=== PATIENT | male | born 1990 | race African-American/Black ===

== ENCOUNTER 2022-11-22 23:26 | Emergency (ER) | payer MEDICAID ==
[~2022-11-22] VITALS: Ht 188 cm; Wt 104.3 kg
[2022-11-22] MEDS ORDERED: KETO10TA2 PO (23:38)
[2022-11-22] MEDS ORDERED: KETOROLAC TROMETHAMINE INJ 60 MG/2 ML VIAL IM ONE (23:50)
[2022-11-22 23:57] VITALS: BP 135/82
[2022-11-23] MEDS ORDERED: KETOROLAC TROMETHAMINE INJ 60 MG/2 ML VIAL IM ONE
--- NOTE | 2022-11-23 03:10 | NUR ---
Patient discharged to home in stable condition. Written and verbal after care instructions given. Patient verbalizes understanding of instruction. Pt ambulatory with a steady gait
== END 2022-11-23 03:15 | disposition home or self-care (01) ==
LOC: ER 23:28
DX: M25.511 Pain in right shoulder (principal); Z79.899 Other long term (current) drug therapy; V43.52XA Car driver injured in collision with other type car in traffic accident, initial encounter; Y93.89 Activity, other specified; Y92.412 Parkway as the place of occurrence of the external cause; Y99.8 Other external cause status
CPT/HCPCS: 99283; 96372; 73030; J1885